=== PATIENT | female | born 1960 | race Caucasian/White ===

== ENCOUNTER 2018-08-26 22:25 | Emergency (ER) | payer SELFPAY ==
[2018-08-26 22:26] VITALS: BP 204/112; PULSE 76; RESP 16; TEMP 36.3; O2SAT 98; BMI 28.3
--- NOTE | 2018-08-26 22:42 | EKG12_ITS ---
Test Reason : HTN Blood Pressure : / mmHG Vent. Rate : 084 BPM Atrial Rate : 069 BPM P-R Int : 186 ms QRS Dur : 086 ms QT Int : 388 ms P-R-T Axes : 060 -11 047 degrees QTc Int : 458 ms Sinus rhythm with frequent Premature ventricular complexes Otherwise normal ECG Confirmed by DIAMANTE GERARD ([id number]), publication editor FRANCISCO SORENSON ([id number]) on 09/09/2018 1:16:30 PM Referred By: PENELOPE Confirmed By:DIAMANTE GERARD
[2018-08-26 22:44] VITALS: BP 179/102; PULSE 82; RESP 18; O2SAT 97
--- NOTE | 2018-08-26 22:48 | RAD_ITS ---
STUDY: X-RAY CHEST REASON FOR EXAM: Female, 57 years old. High blood pressure since Sunday. TECHNIQUE: Single AP portable view of the chest. COMPARISON: Prior comparison studies are not available for review at this time. FINDINGS: Cardiac monitoring leads are present. The lungs are clear and hyperexpanded. There is mild scattered interstitial thickening visible both lungs. There is no demonstrated pleural abnormality. There is borderline cardiomegaly. Normal mediastinum and joelle. Normal visualized pulmonary arteries. There is atherosclerotic tortuosity of the aortic arch and descending thoracic aorta. Normal visualized thoracic spine. Normal visualized ribs, clavicles, and shoulders. There is no demonstrated abnormality of the visualized soft tissue structures of the upper abdomen. RAD/Chest 1 View (Portable) IMPRESSION: No radiographic evidence of acute cardiopulmonary disease. Electronically Signed: Ana Cronin MD at 0:06 EST , Service support ,
--- NOTE | 2018-08-26 22:48 | ED.RN ---
NO OLD EKGS IN MUSE
[2018-08-26] MEDS: Labetalol 20 MG/4 ML Vial 10 MG IV (22:56)
[2018-08-26 22:57] LABS: Absolute Lymphocyte Count 1.81 X10^3/ul (0.83-4.51); Absolute Neutrophil Count 3.2 X10^3/uL (2.0-7.7); Basophil# 0.01 X10^3/uL; Basophil% 0.2 % (0-1); Eosinophil# 0.06 X10^3/uL; Eosinophils% 1.1 % (0-5); Hematocrit 38.5 % (37-47); Hemoglobin 13.2 g/dl (12.0-15.0); Lymphocyte # 1.81 X10^3/ul (4.0); Lymphocyte % 32.3 % (19-41); Mean Corp Hgb Conc 34.3 g/gl (32-36); Mean Corpuscular Hgb 29.5 pg (27.0-32.0); Mean Corpuscular Volume 86.1 fL (81-99); Mean Platelet Vol. 10.3 fl (6.2-12.0); Monocyte% 8.9 % (0-10); Neutrophil # 3.23 X10^3/uL (2.7-7.7); Neutrophil % 57.5 % (47-70); Platelet Count 227 K/mm3 (150-450); RBC Distribution Width CV 12.8 % (11.6-14.6); Red Blood Count 4.47 M/mm3 (4.2-5.4); White Blood Count 5.6 K/mm3 (4.4-11.0)
[2018-08-26 23:00] LABS: POSITIVE COUNT NO; POSITIVE DIFFERENTIAL NO; POSITIVE MORPHOLOGY NO
--- NOTE | 2018-08-26 23:00 | ED.VISSUMM ---
- ER Visit Summary Date of Service: 08/26/18 Chief Complaint: Hypertension History of Present Illness: The patient is a 57 F who states her blood pressures been running high for the past year or so when it was checked by her chiropractor. She hands me a list of her blood pressure and systolic blood pressures been running in the 150s-170s. Her blood pressures been running even higher over the past 4 days. She is an appointment to see Dr. Ken in 2 days. Tonight she felt shaky so she went to have her blood pressure checked. She denies headache or vision change. She denies dizziness. She denies chest pain or palpitations. Physical Examination: Blood pressure is 204/112, otherwise vitals normal. Patient sitting upright in bed no acute distress. Head and neck examination is normal. Heart is regular rate and rhythm. Palpable pulses are noted throughout. Lungs are clear with good air movement throughout. Abdomen is soft and nontender. Bowel sounds are noted. Extremity examination is unremarkable with full range of motion. Neurologic examination reveals no focal deficits. Test Results: EKG is sinus 84 with occasional PVCs. No sign of acute ischemia. No significant findings consistent with LVH. CBC and chemistry studies are normal. Portable chest x-ray shows normal heart size. Emergency Department Course and Treatment: Patient was given 10 mg of IV labetalol. Blood pressure just prior to the medication was 179/102 with a heart rate of 82. At this time her blood pressure is 155/91 with a heart rate is 78. Patient be given prescription for metoprolol 25 mg. She will follow-up with Dr. Ken in 2 days as scheduled. Treatment Plan: [] Disposition: Discharge Impression: Hypertension This note was generated with [employer] dictation software. It may contain incorrect words, spelling, and punctuation that were not noted in review of the chart prior to signing ED Disposition - Plan for ED Patient: Chief Complaint: Hypertension
[2018-08-26 23:07] LABS: Anion Gap 10 (5-15); BUN 17 mg/dL (7-18); BUN/Creat Ratio 20.4 RATIO (10-20); Chloride 103 mmol/L (98-107); Creatinine, Serum 0.83 mg/dL (0.55-1.02); EST Glomerular Filtration Rate 75 mL/min (>60); Est Glom Filt Rate - Afr Amer 90 mL/min (>60); Glucose 108 mg/dL (74-106); Potassium 3.7 mmol/L (3.5-5.1); Sodium Level 138 mmol/L (136-145)
--- NOTE | 2018-08-26 23:17 | ED.DEP ---
ED Disposition - Plan for ED Patient: Disposition: Home or Assisted Living Chief Complaint: Hypertension Instructions: ED Hypertension New Begin Tx Prescriptions: Metoprolol Tartrate 25 mg PO BID #20 tablet Referrals: Hemal Ken DO [Primary Care Provider] - Keep Tonny appointment
[2018-08-26 23:33] VITALS: BP 155/94; PULSE 76; RESP 18; O2SAT 97
== END 2018-08-26 23:50 | disposition home or self-care (01) ==
PROVIDERS: Emergency Provider Emergency Medicine; Family Provider Family Medicine; PCP Family Medicine
DX: I10 Essential (primary) hypertension (principal)
CPT/HCPCS: 71045; 80048; 85025; 93005; 96374; 99284; A4216